=== PATIENT | male | born 1990 | race Caucasian/White ===

== ENCOUNTER 2018-06-22 15:03 | Outpatient (CLI) | payer OTHER ==
--- NOTE | 2018-06-22 15:50 | RAD ---
LUMBAR SPINE 3 VIEWS: HISTORY: Back pain. COMPARISON: None. FINDINGS: Multiple Schmorl's nodes are present of the thoracolumbar spine. No acute fracture or malalignment. No listhesis. No pars interarticularis defect. The paraspinal soft tissues are unremarkable. No facet hypertrophy. The SI joints are unremarkable. IMPRESSION: Multiple Schmorl's odes can be seen with Scheuermann's disease. No acute abnormality. POS: CET
== END 2018-06-22 15:04 | disposition home or self-care (01) ==
LOC: SCSRAD 15:03
PROVIDERS: ATTEND Psychiatry & Neurology Neurology
DX: M54.30 Sciatica, unspecified side (principal); M51.46 Schmorl's nodes, lumbar region
CPT/HCPCS: 72100